=== PATIENT | female | born 1965 | race Caucasian/White ===

== ENCOUNTER 2025-02-20 18:14 | Emergency (ER) | payer OTHER, SELFPAY ==
--- NOTE | 2025-02-20 | ECG_ITS ---
Test Reason : cp Blood Pressure : */* mmHG Vent. Rate : 75 BPM Atrial Rate : 75 BPM P-R Int : 168 ms QRS Dur : 72 ms QT Int : 354 ms P-R-T Axes : 7 -1 51 degrees QTcB Int : 395 ms Normal sinus rhythm Minimal voltage criteria for LVH, may be normal variant ( R in aVL ) Possible Inferior infarct , age undetermined Abnormal ECG No previous ECGs available Referred By: Generic ED Physician Electronically Signed By: Leobardo Espinal
[2025-02-20 18:21] VITALS: BP 180/66; PULSE 71; RESP 20; TEMP 37; O2SAT 96; BMI 23.1
--- NOTE | 2025-02-20 18:56 | ED_ITS ---
HPI - General Adult General Chief complaint: General Medical Stated complaint: bilateral arm numbness/light chest pain? Time Seen by Provider: 02/20/25 21:09 Source: patient Mode of arrival: ambulatory Limitations: no limitations History of Present Illness ED Provider: HPI narrative: Patient's [place] came to [place] 1 month ago does not have any PCP at does have history of hypertension and diabetes comes here for several months of numbness and tingling in both upper and lower extremities patient has been diabetic for more than 12 years taking glimepiride and metformin. No neck pain your muscle weakness Related Data Previous Rx's ?Medication ?Instructions ?Recorded amlodipine 5 mg tablet 5 mg PO DAILY #90 tabs 02/20/25 blood sugar diagnostic #100 ea 02/20/25 blood-glucose meter #1 ea 02/20/25 gabapentin 300 mg capsule 300 mg PO BEDTIME #90 caps 02/20/25 glimepiride 4 mg tablet 4 mg PO QAM #90 tabs 02/20/25 lancets (Lancets,Ultra Thin) #100 ea 02/20/25 metformin 850 mg tablet 850 mg PO BID #180 tabs 02/20/25 valsartan 80 mg tablet 80 mg PO DAILY #90 tabs 02/20/25 Allergies Allergy/AdvReac Type Severity Reaction Status Date / Time No Known Allergies Allergy Verified 02/20/25 18:30 Review of Systems 2 Review of Systems: Yes all other systems are reviewed and are negative [facility] Past Medical History Medical History (Updated 02/21/25 @ 00:45 by Gilberto Martinez MD) Peripheral neuropathy Diabetes mellitus type 2 in nonobese Hypertension Social History Social History Smoked in Last 30 Days: No Use of substances other than those prescribed or required for medical reasons: No Advance Directives: No Advance Directives Information Provided: Yes Patient : No Physical Exam ED Vital Signs: Vital Signs - 24 hr 02/20/25 18:21 02/20/25 19:44 02/20/25 22:29 Temperature 98.6 F 98.8 F 97.4 F Pulse Rate 71 71 57 Respiratory Rate 20 18 12 Blood Pressure 180/66 H 169/62 H 144/62 H Pulse Oximetry 96 96 97 Oxygen Delivery Method Room Air Room Air Room Air 02/20/25 23:11 Temperature 97.4 F Pulse Rate 57 Respiratory Rate 12 Blood Pressure 144/62 H Pulse Oximetry 97 Oxygen Delivery Method Room Air BMI result Body Mass Index 23.1 Appearance: Alert. Oriented X3. No acute distress. Eyes: PERRLA, No Nystagmus ENT: Pharynx normal. Oral Mucosa moist Neck: Normal inspection. Neck supple. No midline tenderness CVS: Normal heart rate and rhythm. Pulses normal. Respiratory: No respiratory distress. Equal air entry bilateral, no wheezing/rales/rhonchi Abdomen: Soft and nontender. Bowel sounds are present, no mass palpable, no CVA tenderness Skin: Skin warm and dry. Normal skin color. Normal skin turgor. Extremities: No lower extremity edema. No calf tenderness Neuro: Oriented X 3. No motor deficit. Decreased sensitive to light touch upper extremity and lower extremity.No cerebellar signs , cranial nerves II-XII intact Course Course Course Narrative: This is an RME performed by Zenon Lopez [employer]: Additional HPI, ROS, PE not included below will be deferred to primary provider. Patient is a 60-year-old female turkey speaking who presents emergency department for evaluation. Evidently has been experiencing numbness and tingling to the bilateral arms occasionally in the bilateral legs has been ongoing for many months. Progressively worsening used only occur at night now happening more frequently and felt throughout the day. Elevated blood pressure readings at home recently. Endorses having chest pain today, burning sensation in the left anterior chest radiating to the shoulder in the back. This has happened intermittently over the past year. Plan: Serum labs, EKG Medications Administered Discontinued Medications Generic Name Dose Route Start Last Admin Trade Name Freq PRN Reason Stop Dose Admin Gabapentin 300 mg 02/20/25 21:52 02/20/25 22:32 Gabapentin 300 Mg Capsule PO 02/20/25 21:53 300 mg ONCE ONE Administration Medical Decision Making Medical Decision Making [facility] Narrative: Patient with diabetic neuropathy will prescribe Neurontin will increase the dose of metformin to 850 mg twice a day for blood sugar of 282 when she came repeat blood sugar was 179 Lab Data [facility] Lab Attestation statement: I reviewed the patient's lab results. 02/20/25 18:55 02/20/25 18:55 Labs: Lab Results 02/20/25 02/20/25 Range/Units 18:55 21:53 WBC 5.4 (4.8-10.8) X10*3/uL RBC 4.46 (4.20-5.50) X10*6/uL Hgb 12.6 (12.0-16.0) g/dl Hct 37.0 (37.0-47.0) % MCV 83.0 (80.0-98.0) fL MCH 28.3 (27.0-33.0) pg MCHC 34.1 (31.0-35.0) g/dl RDW 12.9 (11.0-16.0) % Plt Count 155 L (160-400) X10*3/uL MPV 11.1 (9.4-12.3) fL Immature Gran % (Auto) 0.0 (0.0-0.4) % Neut % (Auto) 51.0 (45-73) % Lymph % (Auto) 41.4 H (20-40) % Garrard % (Auto) 5.9 (2-11) % Eos % (Auto) 1.1 (0-4) % Baso % (Auto) 0.6 (0-2) % Lymph # (Auto) 2.2 (1.2-4.9) X10*3/uL Garrard # (Auto) 0.3 (0.1-1.2) X10*3/uL Eos # (Auto) 0.1 (0.0-0.4) X10*3/uL Baso # (Auto) 0.0 (0.0-0.2) X10*3/uL Abs Immat Gran (auto) 0.00 (0.00-0.03) X10*3/uL Absolute Neuts (auto) 2.7 (2.0-8.3) x10*3/uL Absolute Nucleated RBC 0.000 (0.0-0.012) X10*3/uL Nucleated RBC % (auto) 0.0 (0.0-0.2) /100WBC Sodium 140 (135-145) mmol/L Potassium 4.1 (3.3-5.1) mmol/L Chloride 107 (96-108) mmol/L Carbon Dioxide 25 (22-29) mmol/L Anion Gap 12 (12-20) BUN 15 (9-16) mg/dL Creatinine 0.80 (0.5-1.4) mg/dL Estim Creat Clear Calc 63.8 Estimated GFR > 60 POC Glucose 179 H (60-115) mg/dL Random Glucose 282 H (60-115) mg/dL Calcium 9.4 (8.4-10.2) mg/dL Magnesium 2.0 (1.6-2.6) mg/dL Total Bilirubin 0.2 (0.0-1.0) mg/dL AST 25 (5-31) U/L ALT 17 (0-31) U/L Alkaline Phosphatase 95 (39-117) U/L Troponin I High Sens < 2.7 (<3.5-17.0) ng/L Total Protein 7.2 (6.5-8.0) g/dL Albumin 4.0 (3.5-5.0) g/dL Discharge Plan Discharge Clinical Impression: Diabetic nephropathy, Diabetes mellitus Patient Disposition: Home, Self-Care Instructions: Diabetic Peripheral Neuropathy (ED), Diabetes and Nutrition (ED) Additional Instructions: Drink plenty of fluids Take medication as prescribed increase dose of metformin 850 mg twice daily Follow up with PCP Prescriptions: New metformin 850 mg tablet 850 mg PO BID Qty: 180 0RF amlodipine 5 mg tablet 5 mg PO DAILY Qty: 90 0RF valsartan 80 mg tablet 80 mg PO DAILY Qty: 90 0RF gabapentin 300 mg capsule 300 mg PO BEDTIME Qty: 90 0RF glimepiride 4 mg tablet 4 mg PO QAM Qty: 90 0RF Rx Instructions: administer with breakfast (DME) blood-glucose meter Kit See Rx Instructions .Route Qty: 1 0RF Rx Instructions: As directed (DME) blood sugar diagnostic Strip See Rx Instructions .Route Qty: 100 0RF Rx Instructions: As directed check 2 times a day (DME) lancets [Lancets,Ultra Thin] Misc See Rx Instructions .Route Qty: 100 1RF Rx Instructions: As directed Interventions: ED Discharge Assessment Last Done: 02/20/25 23:11 Discharge Date/Time: 02/20/25 23:12 Print Language: Welsh
[2025-02-20 18:59] LABS: MANUAL DIFF FLAG NO
[2025-02-20 19:07] LABS: Basophils Percent Auto 0.6 % (0-2); Eosinophils Absolute Auto 0.1 X10*3/uL (0.0-0.4); Eosinophils Percent Auto 1.1 % (0-4); Hemoglobin 12.6 g/dl (12.0-16.0); Lymphocytes Absolute Auto 2.2 X10*3/uL (1.2-4.9); Lymphocytes Percent Auto 41.4 % (20-40); Mean Corpuscular HGB Conc 34.1 g/dl (31.0-35.0); Mean Corpuscular Hemoglobin 28.3 pg (27.0-33.0); Mean Platelet Volume 11.1 fL (9.4-12.3); Monocytes Absolute Auto 0.3 X10*3/uL (0.1-1.2); Monocytes Percent Auto 5.9 % (2-11); Neutrophils Absolute Auto 2.7 x10*3/uL (2.0-8.3); Platelet Count 155 X10*3/uL (160-400); Red Blood Count 4.46 X10*6/uL (4.20-5.50); Red Cell Distribution Width 12.9 % (11.0-16.0); White Blood Count 5.4 X10*3/uL (4.8-10.8)
[2025-02-20 19:16] LABS: Alanine Aminotransferase 17 U/L (0-31); Alkaline Phosphatase 95 U/L (39-117); Anion Gap 12 (12-20); Aspartate Amino Transferase 25 U/L (5-31); Bilirubin Total 0.2 mg/dL (0.0-1.0); Blood Urea Nitrogen 15 mg/dL (9-16); Calcium 9.4 mg/dL (8.4-10.2); Carbon Dioxide 25 mmol/L (22-29); Chloride 107 mmol/L (96-108); Creatinine Clr Calc Pharmacy 63.8; Estimated Glomerular Filt Rate > 60; Glucose Random 282 mg/dL (60-115); Potassium 4.1 mmol/L (3.3-5.1); Sodium 140 mmol/L (135-145); Total Protein 7.2 g/dL (6.5-8.0)
[2025-02-20 19:21] LABS: Troponin-I High Sensitivity < 2.7 ng/L (<3.5-17.0)
[2025-02-20 19:44] VITALS: BP 169/62; PULSE 71; RESP 18; TEMP 37.1; O2SAT 96
--- NOTE | 2025-02-20 19:48 | PC.NURSE ---
pt son interpreting at this time. pt a&ox4, respirations even and unlabored. pt reports x3 weeks of elbow pain which has been causing right arm numbness radiating down arm and down abdomen into right leg. pt reports the pain has gotten worse and she had a lump on her right elbow. vss. nsr on tele. [facility] [place]
[2025-02-20 21:56] LABS: Glucose, Whole Blood 179 mg/dL (60-115)
[2025-02-20 22:29] VITALS: BP 144/62; PULSE 57; RESP 12; TEMP 36.3; O2SAT 97
[2025-02-20] MEDS: Gabapentin 300 MG CAPSULE PO (22:32)
[2025-02-20 23:11] VITALS: BP 144/62; PULSE 57; RESP 12; TEMP 36.3; O2SAT 97
== END 2025-02-20 23:12 | disposition home or self-care (01) ==
PROVIDERS: Nurse Practitioner Family; Emergency Provider Internal Medicine; PCP Internal Medicine
DX: R07.89 Other chest pain (principal); E11.21 Type 2 diabetes mellitus with diabetic nephropathy; Z79.84 Long term (current) use of oral hypoglycemic drugs; E11.9 Type 2 diabetes mellitus without complications; R20.0 Anesthesia of skin; Z79.899 Other long term (current) drug therapy
CPT/HCPCS: 36415; 80053; 82947; 83735; 84484; 85025; 93005; 99283; 99284

== ENCOUNTER → 2025-02-20 18:20 | Outpatient (BNV) | payer OTHER, SELFPAY | PROVIDERS: Emergency Provider Internal Medicine; PCP Internal Medicine; Visit Provider Internal Medicine Cardiovascular Disease | DX: R94.31 Abnormal electrocardiogram [ECG] [EKG] (principal); R07.9 Chest pain, unspecified | CPT/HCPCS: 93010 ==